=== PATIENT | female | born 1970 | race Caucasian/White ===

== ENCOUNTER 2018-03-25 11:22 | Emergency (ER) | payer BC ==
[2018-03-25 12:41] LABS: Bilirubin Negative (Negative); Blood, Urine Moderate (Negative); Clarity CLOUDY (Clear); Glucose, Urine (Dipstick) Negative (Negative); Leukocyte Negative (Negative); Nitrite Negative (Negative); Protein, Urine (Dipstick) Negative (Neg-Trace); Specific Gravity, Urine 1.034 (1.002-1.036); pH, Urine 5.5 (5.0-9.0)
[2018-03-25 12:47] LABS: Bacteria/HPF Rare-Few HPF (None Seen); Hyaline Casts/LPF 4-6 HYALINE CAST LPF (0-3 Hyaline); Pathc Cast-AUWi Flag 1.45 (0-2.49); WBC/HPF 0-3 HPF (0-3)
[2018-03-25 13:05] LABS: Crystals/HPF 3+ AMORPH URATES HPF (Negative)
[2018-03-25] MEDS ORDERED: Ibuprofen 200 MG TAB ONE (13:37)
--- NOTE | 2018-03-25 14:40 | CT ---
CT OF THE ABDOMEN AND PELVIS WITHOUT IV CONTRAST: INDICATION: History of cough, congestion, and fever and body aches. COMPARISON: Prior CT of the thorax dated 08/23/10. FINDINGS: There are areas of reticulonodularity seen within the lateral segment of the right middle lobe and in ferior segment of the lingula which can be seen with a bronchiolitis. Unopacified liver is unremarkable. The spleen is enlarged measuring 14.2 cm, roughly stable to the c omparison in 2010. Unopacified adrenal glands and pancreas are unremarkable. The unopacified kidneys reveal no definite hydronephrosis. There is a large heterogeneous collection seen within the retrouterine space of the pelvis measuring approximately 13.6 x 8.4 cm and nonspecific, suspicious for possibly a large pelvic mass. The origin of this pelvic mass is difficult to discern on the current study. There is heterogeneous appearance of the uterus suspicious for fibroid disease. There is a large hypodense lesion involving the suspe cted left adnexa measuring 3 cm on image 68 of series 2. There is a small hypodense lesion involving the right adrenal gland measuring 1.8 cm on image 67 of series 2. There are mild vascular calcifications. No definite acute osseous abnormality is evident. There is scattered degenerative change. IMPRESSION: 1. Large heterogeneous mass seen within the retrouterine space may reflect a large amount of hemorrh age or may reflect a solid mass lesion extending from the posterior aspect of the uterus, cervix, or adnexa. This is poorly discerned on the current study. Recommend a pelvic ultrasound for further ch aracterization. Fibroid uterus. Hypodense lesions of both adnexa. 2. No hydronephrosis demonstrated. 3. Splenomegaly. 4. Tree-in-bud nodularity involving the right middle lobe and lingula may reflect a bronchiolitis or early changes of bronchopneumonia. Recommend correlation. 5. Other chronic findings as above. POS: [facility]
--- NOTE | 2018-03-25 19:16 | ULT ---
PELVIC ULTRASOUND: HISTORY: Low back pain. Pelvic mass noted on CT from 03/25/2018. TECHNIQUE: Transabdominal and endovaginal imaging of the pelvis is performed. The ovaries are interrogated with diamond-scale, color-flow, Doppler imaging, and spectral wave-form analysis. FINDINGS: Suboptimal evaluation of the uterus. There are multiple hypoechoic masses throughout the uterus. Th e larges hypoechoic mass measures 2.5 x 2.7 x 3.7 cm and may represent a fundal fibroid. Limited peng luation of the endometrium. Overall, the uterus measures 7.2 x 8.3 x 11.1 cm. Left adnexa: No obvious ovary. There is a complex solid mass in the right adnexa, measuring at least 13 cm. There appear to be two separate anechoic foci associated with the right ovary. The largest lesion measures 2.5 cm. The sma ller lesion measures 2.3 cm. Overall, the right ovary measures 3.2 x 5.6 x 3.1 cm. There is no free fluid. Ovarian Doppler: There appears to be vascular flow to the right ovary. IMPRESSION: Complex solid echotexture mass posterior to the uterus and possibly extending into the left adnexa, a s suggested on CT. The possibility of a neoplasm cannot be excluded. A gynecological consultation a nd a pelvic magnetic resonance imaging may be beneficial. POS: [facility]
== END 2018-03-25 17:58 | disposition home or self-care (01) ==
LOC: ERS 11:22
DX: J20.9 Acute bronchitis, unspecified (principal); D25.9 Leiomyoma of uterus, unspecified; R19.00 Intra-abdominal and pelvic swelling, mass and lump, unspecified site; F17.210 Nicotine dependence, cigarettes, uncomplicated
CPT/HCPCS: 74176; 76856; 81003; 81015; 87804